=== PATIENT | male | born 1970 ===

== ENCOUNTER 2018-01-26 04:31 | Emergency (ER) | payer SELFPAY ==
[~2018-01-26] VITALS: Ht 182.9 cm; Wt 83.9 kg
--- NOTE | 2018-01-26 04:33 | NUR ---
Pt brought in by rescue, pt catat[place], nonverbal, but responds to stimuli, awake, moans and groans.
--- NOTE | 2018-01-26 04:38 | NUR ---
Dr. Loredo at bedside for MSE.
[2018-01-26] MEDS ORDERED: IV NORMAL SALINE 1000 ML BAG IV ONE (04:45)
--- NOTE | 2018-01-26 05:00 | NUR ---
Pt out of ER for CT.
--- NOTE | 2018-01-26 05:11 | NUR ---
Pt back to ER from CT.
[2018-01-26 05:17] LABS: BASOPHILS % (AUTO) 0.4 % (0.0-2.0); EOSINOPHILS % (AUTO) 0.4 % (0.0-7.0); HEMATOCRIT 44.7 % (36.7-47.1); HEMOGLOBIN 15.2 g/dL (12.5-16.3); LYMPHOCYTES # (AUTO) 1.9 K/uL (20.0-40.0); LYMPHOCYTES % (AUTO) 22.2 % (20.5-51.5); MEAN CORPUSCULAR HEMOGLOBIN 30.5 uug (23.8-33.4); MEAN CORPUSCULAR HGB CONC 34 g/dL (32.5-36.3); MEAN CORPUSCULAR VOLUME 89.6 fL (73.0-96.2); MONOCYTES # (AUTO) 0.5 K/uL (2.0-10.0); MONOCYTES % (AUTO) 6.1 % (0.0-11.0); NEUTROPHILS % (AUTO) 70.9 % (38.5-71.5); PLATELET COUNT (AUTO) 386 K/uL (152-348); WHITE BLOOD COUNT (AUTO) 8.4 K/uL (3.6-10.2)
--- NOTE | 2018-01-26 05:25 | NUR ---
Inserted gomez catheter, urine sample sent to lab, patient tolerated procedure well.
[2018-01-26 05:26] LABS: CARBON DIOXIDE 28 mmol/L (21-32); CHLORIDE 100 mmol/L (98-107); CREATININE 1.2 mg/dL (0.6-1.3); GLUCOSE 102 mg/dL (74-106); POTASSIUM 3.7 mmol/L (3.5-5.1); UREA NITROGEN, BLOOD 21 mg/dL (7-18)
[2018-01-26] MEDS ORDERED: LIDOCAINE 2% (UROJET) 10 ML JELLY MM ONE ×2 (05:28→05:30)
[2018-01-26 05:31] LABS: ALANINE AMINOTRANSFERASE 40 U/L (16-63); ALKALINE PHOSPHATASE 94 U/L (50-136); ASPARTATE AMINOTRANSFERASE 22 U/L (15-37); BILIRUBIN,DIRECT 0.2 mg/dL (0.0-0.2); BILIRUBIN,TOTAL 0.8 mg/dL (0.2-1.0); TOTAL PROTEIN, SERUM 8.5 g/dL (6.4-8.2)
[2018-01-26 05:33] LABS: ACETAMINOPHEN < 2.0 ug/mL (10-30)
[2018-01-26 05:35] LABS: ETHANOL < 3 MG/DL (0-0)
--- NOTE | 2018-01-26 05:40 | NUR ---
Asked pt if in pain, pt responded with "uh uh", asked pt if hungry, pt responded with "hmm".
[2018-01-26 06:01] LABS: *AMPHETAMINE, URINE POSITIVE (NEGATIVE); *BARBITURATE, URINE NEGATIVE (NEGATIVE); *CANNABINOID, URINE POSITIVE (NEGATIVE); *COCCAINE, URINE NEGATIVE (NEGATIVE); *OPIATE, URINE NEGATIVE (NEGATIVE); *PHENCYCLIDINE SCREEN,URINE NEGATIVE (NEGATIVE)
[2018-01-26] MEDS ORDERED: OLANZAPINE 10 MG VIAL IM ONE ×2 (06:24→06:30)
[2018-01-26 06:28] LABS: *BILIRUBIN,URIN NEGATIVE (NEGATIVE); *BLOOD, URINE NEGATIVE (NEGATIVE); *CLARITY,URINE SLIGHTLY CLOUDY (CLEAR); *COLOR,URINE YELLOW (YELLOW); *KETONES,URINE NEGATIVE (NEGATIVE); *PROTEIN,URINE TRACE (NEGATIVE); *UROBILINOGEN,URINE 0.2 E.U./dl (NORMAL); LEUKOCYTE ESTERASE ,URINE NEGATIVE (NEGATIVE); NITRITE, URINE NEGATIVE (NEGATIVE); UGLUCOSE NEGATIVE (NEGATIVE)
[2018-01-26 06:31] LABS: BACTERIA,URINE NONE SEEN /HPF (NONE SEEN); RBC,URINE 0-3 /HPF (0-3); SQUAMOUS EPITHELIAL CELL,UR FEW /HPF (NONE SEEN); TRANSITIONAL EPI CELLS,URINE MODERATE /LPF (NONE SEEN); URINE AMORPHOUS PHOSPHATES FEW /HPF; WBC,URINE 0-3 /HPF (0-3)
[2018-01-26 06:41] LABS: THYROID STIMULATING HORMONE 1.769 mIU/mL (0.358-3.740)
--- NOTE | 2018-01-26 07:10 | NUR ---
Passed SBAR report to Juan Watson RN.
--- NOTE | 2018-01-26 07:10 | NUR ---
Received report from TITUS Mukherjee, assumed care for pt.
--- NOTE | 2018-01-26 07:20 | NUR ---
Pt is sleeping with no s/s of distress.
--- NOTE | 2018-01-26 08:00 | NUR ---
Pt is awake and alert at this time. States his name is Dar Chandra ( [birth year]). Pt states he is hungry, breakfast ordered. Pt states he currently lives in a Motel. No s/s of distress noted at this time.
--- NOTE | 2018-01-26 09:45 | NUR ---
Pt ate breakfast and ambulated to the restroom. NAD noted at this time.
--- NOTE | 2018-01-26 10:35 | NUR ---
Pt stated " I need to go now ".
--- NOTE | 2018-01-26 10:40 | NUR ---
IV removed. Catheter intact and site benign. Pressure and 4x4 gauze applied to site. No bleeding noted.
--- NOTE | 2018-01-26 10:45 | NUR ---
Patient discharged in stable conditon as per Dr. Whitmore order. Pt ambulated to ER waiting room, NAD noted.
== END 2018-01-26 10:56 | disposition home or self-care (01) ==
LOC: ER 04:31
DX: R41.82 Altered mental status, unspecified (principal); F15.10 Other stimulant abuse, uncomplicated; J18.9 Pneumonia, unspecified organism; Z59.0 Homelessness
CPT/HCPCS: 36415; 70030-TC; 70450; 71045; 80307; 84443; 85025; 93005; A4663; C1758; G0480; G0480-TC; J2358; J7030